=== PATIENT | female | born 1950 | race Caucasian/White ===

== ENCOUNTER 2016-10-19 13:27 | Emergency (ER) | payer MEDICARE ==
[2016-10-19 14:13] VITALS: BP 184/107
--- NOTE | 2016-10-19 15:24 | UC ---
Lower Extremity/Ankle HPI - HPI Summary HPI Summary: She has a hx of gout and is on allopurinol. For the past 24-48 hours she has had right ankle pain without injury or twisting. this is similar to prior episode where x rays were done and found to be normal. she denies fever or chills. no prior surgery to that ankle. - History of Current Complaint Chief Complaint: UCLowerExtremity Stated Complaint: RIGHT ANKLE PAIN Time Seen by Provider: 10/19/16 15:04 Hx Obtained From: Patient Hx Last Menstrual Period: n/a ?: No Onset/Duration: Gradual Onset, Lasting Days Severity Initially: Severe Severity Currently: Moderate - she says it is better today with less swelling and increased ROM. Aggravating Factor(s): Standing, Ambulation Alleviating Factor(s): Rest, Elevation Able to Bear Weight: Yes - Risk Factors Gout Risk Factors: Age Over 40, Diabetes, Hypertension, Renal Disease, Obesity - Allergies/Home Medications Allergies/Adverse Reactions: Allergies Allergy/AdvReac Type Severity Reaction Status Date / Time No Known Allergies Allergy Verified 10/19/16 14:13 Home Medications: Home Medications Fluticasone-Salmeterol 250-50* [Advair Diskus 250-50*] 1 puff INH BID 10/19/16 [ History Confirmed 10/19/16] PMH/Surg Hx/FS Hx/Imm Hx Previously Healthy: No Endocrine History: Diabetes Cardiovascular History: Hypertension - Surgical History Surgical History: Yes Surgery Procedure, Year, and Place: LIthOTRIPSY- 1-2 YRS AGO - Family History Known Family History: Positive: Other - no joint related disorders. - Social History Lives: With Family Alcohol Use: None Substance Use Type: None Smoking Status (MU): Never Smoked Tobacco Review of Systems Musculoskeletal: Arthralgia, Edema, Other: - localized to right ankle alone. All Other Systems Reviewed And Are Negative: Yes Physical Exam Triage Information Reviewed: Yes Appearance: Well-Appearing, No Pain Distress, Well-Nourished Vital Signs: Initial Vital Signs Temp 99.2 F 10/19/16 14:03 Pulse 108 10/19/16 14:03 Resp 17 10/19/16 14:03 BP 184/107 10/19/16 14:03 Pulse Ox 98 10/19/16 14:03 Vital Signs Reviewed: Yes Eye Exam: Normal ENT Exam: Normal Neck exam: Normal Respiratory Exam: Normal Cardiovascular Exam: Normal Abdominal Exam: Normal Musculoskeletal Exam: Other - right ankle effusion without any active rom pain. she is able to flex and extend without guarding but it is limited due to effusion. the joint is warm but not hot or red. no calf or foot or heel involvement. Neurological Exam: Normal Psychological Exam: Normal Skin Exam: Normal Lower Extremity Course/Dx - Course Course Of Treatment: I had a long conversation with pt and daughter. this is most c/w gout flare up. No clinical signs of septic arthritis. We will give a very limited supply of colchicine due to her kidney disease and short course of prednisone due to htn and dm. She will start januvia which she has at home from prior rx to combat the higher sugars she may experience and we will refill her lisinopril which she has run out of. she agrees to return immediately for any signs of worsening. it is already improved from yesterday without treatment thus far. - Differential Dx/Diagnosis Differential Diagnosis/HQI/PQRI: Arthritis, Bursitis, Cellulitis, Compartment Syndrome, Contusion, Dislocation, Fracture (Closed), Fracture (Open), Gout, Infection, Osteomyelitis, Puncture Wound, Septic Arthritis, Sprain, Strain, Tendonitis, Tenosynovitis Provider Diagnoses: right ankle acute gout flare up. Discharge - Discharge Plan Condition: Good Disposition: HOME Prescriptions: Colchicine* [Colcrys*] 0.6 mg PO DAILY #2 tab Lisinopril TAB* [Prinivil TAB 10 MG*] 20 mg PO DAILY #14 tab predniSONE TAB* [Deltasone TAB*] 40 mg PO DAILY #3 tab Patient Education Materials: Low Purine Diet (ED), Gout (ED) Referrals: Alison Blank MD [Primary Care Provider] - As Soon As Possible
== END 2016-10-19 15:21 | disposition home or self-care (01) ==
LOC: UCCORT 13:27
DX: M10.9 Gout, unspecified (principal); E11.9 Type 2 diabetes mellitus without complications; I12.9 Hypertensive chronic kidney disease with stage 1 through stage 4 chronic kidney disease, or unspecified chronic kidney disease; N18.9 Chronic kidney disease, unspecified
CPT/HCPCS: 99202; G0463